=== PATIENT | female | born 1990 ===

== ENCOUNTER 2017-06-01 11:59 | Inpatient (IN) | payer OTHER ==
[~2017-06-01] VITALS: Ht 172.7 cm; Wt 82.6 kg
[2017-06-01] MEDS ORDERED: PRENATAL TABLE1 EAC1 PO (12:26)
[2017-06-01] MEDS ORDERED: IRON325 MG PO (12:27)
== END 2017-06-08 10:09 | disposition home or self-care (01) | DRG 778 ==
LOC: LDR 11:59 → OB/GYN 11:59
PROC: 4A1HXCZ Monitoring of Products of Conception, Cardiac Rate, External Approach (ICD-10-PCS; principal; 2017-06-01)
PROC: BY4FZZZ Ultrasonography of Third Trimester, Single Fetus (ICD-10-PCS; 2017-06-01)
PROC: BU4CZZZ Ultrasonography of Uterus and Ovaries (ICD-10-PCS; 2017-06-01)
DX: O60.03 Preterm labor without delivery, third trimester (principal); O98.813 Other maternal infectious and parasitic diseases complicating pregnancy, third trimester; B37.49 Other urogenital candidiasis; Z3A.33 33 weeks gestation of pregnancy

== ENCOUNTER 2017-06-20 16:12 | Inpatient (IN) | payer OTHER ==
[~2017-06-20] VITALS: Ht 172.7 cm; Wt 83.9 kg
[~2017-06-20 16:12] MED LIST: IRON325 MG PO; PRENATAL TABLE1 EAC1 PO
== END 2017-06-22 10:59 | DRG 765 ==
LOC: LDR 16:12 → O/R 19:30 → OB/GYN 20:13
PROVIDERS: Obstetrics & Gynecology
PROC: 0UT70ZZ Resection of Bilateral Fallopian Tubes, Open Approach (ICD-10-PCS; 2017-06-20)
PROC: 4A1HXCZ Monitoring of Products of Conception, Cardiac Rate, External Approach (ICD-10-PCS; 2017-06-20)
PROC: 4A033R1 Measurement of Arterial Saturation, Peripheral, Percutaneous Approach (ICD-10-PCS; 2017-06-20)
PROC: 10D00Z1 Extraction of Products of Conception, Low, Open Approach (ICD-10-PCS; principal; 2017-06-20 17:00)
DX: O34.211 Maternal care for low transverse scar from previous cesarean delivery (principal); O60.14X0 Preterm labor third trimester with preterm delivery third trimester, not applicable or unspecified; Z3A.36 36 weeks gestation of pregnancy; Z30.2 Encounter for sterilization; Z64.1 Problems related to multiparity; Z37.0 Single live birth